=== PATIENT | male | born 1990 | race African-American/Black ===

== ENCOUNTER 2017-01-16 09:59 | Day surgery (SDC) | payer OTHER ==
--- NOTE | 2017-01-09 11:06 | HISTORY AND PHYSICAL E ---
History and Physical NAME: LISHA GONZALEZ : 1990 AGE: 26Y ADMITTED: 01/16/2017 ROOM: HISTORY OF PRESENT ILLNESS: The patient is a 26-year-old male presents with nausea, vomiting, abdominal pain. He does have epigastric discomfort. The patient awaiting MRI results. His gallbladder ultrasound negative. SOCIAL HISTORY: He is single. Quit smoking. Does not drink, rare. PAST SURGICAL HISTORY: Negative. REVIEW OF SYSTEMS: HEAD, EARS, EYES, NOSE AND THROAT: Negative. RESPIRATORY: Asthma as a child. CARDIAC: Negative. ENDOCRINE: Negative. GASTROINTESTINAL: Nausea, vomiting, abdominal pain upper. ONCOLOGY/HEMATOLOGY: Negative. NEUROLOGIC: Negative. FAMILY HISTORY: Father is alive. Mom is alive, she has gallbladder disease. PHYSICAL EXAMINATION: GENERAL: A 26-year-old young male in no acute distress. VITAL SIGNS: Weight 290 pounds, blood pressure 100/70, pulse 70. HEAD, EARS, EYES, NOSE AND THROAT: Normal. ABDOMEN: Soft. NEUROLOGIC: Exam negative. CONCLUSION: Abdominal pain, etiology undetermined. PLAN: Arrange for upper endoscopy scheduled for 01/16. DICTATING PHYSICIAN: ANGELA HERCULES M.D. 5020M [id number] PHY#: [id number] ID: [id number] JOB#: [id number] ACCT: [id number] cc:[facility] ANGELA LOCK M.D. >
[2017-01-16] MEDS ORDERED: NALOXONE HCL INJ/PF 0.4 MG/1 ML SDV ONE (10:54)
[2017-01-16] MEDS ORDERED: GLYCOPYRROLATE INJ 0.4 MG/2 ML VIAL ONE (10:54)
[2017-01-16] MEDS ORDERED: ONDANSETRON HCL INJ/PF 4 MG/2 ML SDV ONE (10:54)
[2017-01-16] MEDS ORDERED: FLUMAZENIL INJ 0.5 MG/5 ML VIAL ONE (10:55)
[2017-01-16] MEDS ORDERED: EPINEPHRINE INJ 1 MG/10 ML DISP.SYRIN ONE (10:55)
[2017-01-16] MEDS ORDERED: FENTANYL CITRATE INJ/PF 100 MCG/2 ML AMPUL ONE (10:55)
[2017-01-16] MEDS: MIDAZOLAM 2 MG/2 ML INJ ONE ×3 (11:11→11:17)
[2017-01-16 12:24] LABS: ABSOLUTE EOSINOPHILS # (AUTO) 0.1 10^3/uL (0.0-0.6); ABSOLUTE LYMPHOCYTES (AUTO) 2.5 10^3/uL (0.5-4.7); ABSOLUTE MONOCYTES (AUTO) 0.4 10^3/uL (0.1-1.4); ABSOLUTE NEUT (AUTO) 5.6 10^3/uL (1.7-8.2); BASOPHILS % (AUTO) 0.3 % (0-2); EOSINOPHILS % (AUTO) 1.1 % (0-6); HEMATOCRIT 42.3 % (37.9-51.0); HEMOGLOBIN 14.7 g/dL (13.5-17.0); HGB HCT DIFFERENCE 1.8; LYMPHOCYTES % (AUTO) 29.1 % (13-45); MEAN CORPUSCULAR HEMOGLOBIN 30.1 pg (27.0-33.4); MEAN CORPUSCULAR HGB CONC 34.7 g/dL (32.0-36.0); MEAN CORPUSCULAR VOLUME 87 fl (80-97); MONOCYTES % (AUTO) 5.1 % (3-13); RED BLOOD COUNT 4.89 10^6/uL (4.35-5.55); RED CELL DISTRIBUTION WIDTH 13.3 % (11.5-14.0); SEGMENTED NEUTROPHILS % (AUTO) 64.4 % (42-78); WHITE BLOOD COUNT 8.7 10^3/uL (4.0-10.5)
[2017-01-16 12:41] LABS: ALANINE AMINOTRANSFERASE 51 U/L (21-72); ALBUMIN 4.4 g/dL (3.5-5.0); ALKALINE PHOSPHATASE 70 U/L (38-126); AMYLASE 40 U/L (30-110); ANION GAP 11 (5-19); ASPARTATE AMINO TRANSFERASE 31 U/L (17-59); BILIRUBIN,DIRECT 0.4 mg/dL (0.0-0.4); BILIRUBIN,TOTAL 0.8 mg/dL (0.2-1.3); BLOOD UREA NITROGEN 9 mg/dL (7-20); CALCIUM 9.6 mg/dL (8.4-10.2); CARBON DIOXIDE 26 mmol/L (22-30); CHLORIDE 103 mmol/L (98-107); CREATININE RESULT 0.75 mg/dL (0.52-1.25); GLUCOSE 132 mg/dL (75-110); LIPASE 46.6 U/L (23-300); POTASSIUM 4.4 mmol/L (3.6-5.0); SODIUM 140.2 mmol/L (137-145); TOTAL PROTEIN 7.5 g/dL (6.3-8.2)
--- NOTE | 2017-01-16 14:16 | DISCHARGE SUMMARY E ---
Discharge Summary NAME: LISHA GONZALEZ : 1990 AGE: 26Y ADMITTED: 01/16/2017 DISCHARGED: 01/16/2017 PROCEDURE: EGD and biopsy. HISTORY: A 26-year-old young male presented with abdominal pain, questioned peptic ulcer is considered. Upper endoscopy done with no complications. Patient's intubation of the oropharynx and intubation of the esophagus was slightly difficult secondary to enlarged tongue. Otherwise, no evidence of malignancy, no ulcers, mild gastritis, mild duodenitis. DISCHARGE PLAN: 1. Lab studies. 2. Check prostatic specific antigen. 3. Patient to see us in the office in the next few days. 4. Hold aspirin and nonsteroidals. 5. Patient is ALLERGIC TO FLEXERIL. 6. Follow-up office visit in the next few days. DICTATING PHYSICIAN: ANGELA HERCULES M.D. 1209M 1137 PHY#: [id number] ID: [id number] JOB#: [id number] ACCT: [id number] cc:[facility] ANGELA HERCULES M.D. >
--- NOTE | 2017-01-16 14:26 | OPERATIVE REPORT E ---
Operative Report NAME: LISHA GONZALEZ : 1990 AGE: 26Y DATE OF SURGERY: 01/16/2017 ROOM: PREOPERATIVE DIAGNOSIS: Abdominal pain, questioned peptic ulcer disease. POSTOPERATIVE DIAGNOSES: 1. Duodenitis, mild. 2. Gastritis, mild. PROCEDURE: Esophagoscopy, gastroscopy, duodenoscopy. SURGEON: ANGELA HERCULES M.D. ANESTHESIA: Versed 5 mg and Fentanyl 100 mcg. TISSUE REMOVED OR ALTERED: Gastric biopsy for H. pylori. The patient is on Bactrim for prostatitis. PROCEDURE: After sedation achieved, baby scope passed with some difficulties. Patient has a large tongue, difficult intubation of the esophagus but successful after the second trial. Esophagoscopy: Junction at 40, no ulcers, no hernias. Gastroscopy: Mild gastritis. Duodenoscopy: No evidence of ulcers, mild duodenitis. CONCLUSIONS: Gastritis, duodenitis. No ulcers. PLAN: 1. Hold aspirin and nonsteroidals. 2. Awaiting lab studies. DICTATING PHYSICIAN: ANGELA HERCULES M.D. 1209M 1134 [facility]#: [id number] ID: [id number] JOB#: [id number] ACCT: [id number] [facility] ANGELA HERCULES M.D. >
[2017-01-16 15:23] VITALS: BP 127/78
== END 2017-01-16 12:55 | disposition home or self-care (01) ==
LOC: END 09:59
PROVIDERS: ATTEND Specialist
PROC: 0DB68ZX Excision of Stomach, Via Natural or Artificial Opening Endoscopic, Diagnostic (ICD-10-PCS; principal; 2017-01-16 11:00)
DX: K29.70 Gastritis, unspecified, without bleeding (principal); K29.80 Duodenitis without bleeding; Z87.891 Personal history of nicotine dependence
CPT/HCPCS: 43239; 36415; 82150; 83690; 85025; 80053; 88342 ×2; 88305 ×2; J2250; J3010; J2405; J0171; J2310; J3490